=== PATIENT | male | born 1970 | race Hispanic/Latino ===

== ENCOUNTER → 2024-10-25 | Day surgery (SDC) | payer OTHER ==
[~2024-10-25] MED LIST: CRESTOR40 MG PO; LIDOCAINE HCL 2% LOCAL 20 ML VIAL ONE; MIDAZOLAM HCL 5 MG/ML VIAL ONE; PROPOFOL IV EMULSION 10 MG/ML 20 ML VIAL ONE; SYNJARDY XR 121 EACH PO; ZESTRIL2.5 MG PO
[2024-10-25] MEDS: LACTATED RINGER'S 1,000 ML ONE (13:18)
[2024-10-25 13:20] VITALS: TEMP 97.7
[2024-10-25 14:15] VITALS: BP 125/77; PULSE 90; RESP 16; O2SAT 94
== END | disposition home or self-care (01) ==
LOC: OR 11:34
PROVIDERS: ATTEND Internal Medicine Gastroenterology
DX: Z12.11 Encounter for screening for malignant neoplasm of colon (principal); I10 Essential (primary) hypertension; E78.5 Hyperlipidemia, unspecified; E11.9 Type 2 diabetes mellitus without complications; Z72.0 Tobacco use; Z01.810 Encounter for preprocedural cardiovascular examination; Z79.84 Long term (current) use of oral hypoglycemic drugs; Z79.899 Other long term (current) drug therapy; Z68.31 Body mass index [BMI] 31.0-31.9, adult
CPT/HCPCS: 36415; 45330; 82948; 93005; J2003; J2250; J2704; J7121; 45378

== ENCOUNTER → 2024-12-28 | Day surgery (SDC) | payer OTHER ==
[~2024-12-28] MED LIST changes: -LIDOCAINE HCL 2% LOCAL 20 ML VIAL ONE; +LIDOCAINE HCL 2% LOCAL INJ 5 ML SDV VIAL INJ ONE; +MIDAZOLAM HCL 2 MG/2 ML VIAL ONE; -MIDAZOLAM HCL 5 MG/ML VIAL ONE; +MULTI-VITAMIN1 EACH PO
[2024-12-28] MEDS: LACTATED RINGER'S 1,000 ML ONE (12:21)
[2024-12-28 13:52] VITALS: TEMP 97
[2024-12-28 14:15] VITALS: BP 131/89; PULSE 70; RESP 18; O2SAT 98
== END | disposition home or self-care (01) ==
LOC: OR 10:51
PROVIDERS: ATTEND Internal Medicine Gastroenterology
DX: Z12.11 Encounter for screening for malignant neoplasm of colon (principal); D12.3 Benign neoplasm of transverse colon; K55.20 Angiodysplasia of colon without hemorrhage; K64.8 Other hemorrhoids; E11.9 Type 2 diabetes mellitus without complications; I10 Essential (primary) hypertension; E78.00 Pure hypercholesterolemia, unspecified; Z72.0 Tobacco use; Z79.84 Long term (current) use of oral hypoglycemic drugs; Z79.899 Other long term (current) drug therapy; Z68.31 Body mass index [BMI] 31.0-31.9, adult
CPT/HCPCS: 36415; 45384; 82948; J2003; J2250; J2704; J7121; 45378; 45385